=== PATIENT | female | born 1975 | race Caucasian/White ===

== ENCOUNTER 2019-02-08 16:41 | Inpatient (IN) | payer BC ==
[2019-02-08 18:12] LABS: BLOOD UREA NITROGEN,BUN 6 mg/dL (7.0-18.0); CHLORIDE,CL 105 mmol/L (98-107); GLUCOSE RANDOM 72 mg/dL (74-106); SODIUM,NA 140 mmol/L (136-145)
[2019-02-08] MEDS ORDERED: Sodium Chloride 0.9% 10 ML SDV IV PRN ×2 (18:41→18:56)
[2019-02-08] MEDS ORDERED: Sodium Chloride 0.9% 2.5 ML Syringe FLUSH PRN ×2 (18:41→18:56)
[2019-02-08] MEDS ORDERED: Sodium Chloride 0.9% 10 ML Syringe FLUSH PRN ×2 (18:41→18:56)
--- NOTE | 2019-02-08 18:43 | PCM.PREANE ---
Preanesthetic Assessment - Anesthesia/Transfusion/Family Hx Anesthesia History: Prior Anesthesia Without Reaction Family History of Anesthesia Reaction: No Transfusion History: No Prior Transfusion(s) - Review of Systems General: No Symptoms Pulmonary: No Symptoms Cardiovascular: No Symptoms Gastrointestinal: No Symptoms Neurological: No Symptoms Other: Reports: None - Physical Assessment NPO Status Date: 02/08/19 NPO Status Time: 17:00 Height: 5 ft 4 in Weight: 107.955 kg ASA Class: 2E Mental Status: Alert & Oriented x3 Airway Class: Mallampati = 2 Dentition: Reports: Normal Dentition Thyro-Mental Finger Breadths: 3 Mouth Opening Finger Breadths: 3 ROM/Head Extension: Full Lungs: Clear to Auscultation, Normal Respiratory Effort Cardiovascular: Regular Rate, Regular Rhythm - Lab Values: Laboratory Last Values WBC 5.24 K/uL (4.0-11.0) 02/08/19 17:36 RBC 3.97 M/uL (4.30-5.90) L 02/08/19 17:36 Hgb 12.1 g/dL (12.0-16.0) 02/08/19 17:36 Hct 35.1 % (36.0-46.0) L 02/08/19 17:36 MCV 88.4 fL (80.0-98.0) 02/08/19 17:36 MCH 30.5 pg (27.0-32.0) 02/08/19 17:36 MCHC 34.5 g/dL (31.0-37.0) 02/08/19 17:36 RDW Std Deviation 43.6 fl (28.0-62.0) 02/08/19 17:36 RDW Coeff of Gerg 14 % (11.0-15.0) 02/08/19 17:36 Plt Count 198 K/uL (150-400) 02/08/19 17:36 MPV 10.30 fL (7.40-12.00) 02/08/19 17:36 Nucleated RBC % 0.0 /100WBC 02/08/19 17:36 Nucleated RBCs # 0 K/uL 02/08/19 17:36 Sodium 140 mmol/L (136-145) 02/08/19 17:36 Potassium 4.0 mmol/L (3.5-5.1) 02/08/19 17:36 Chloride 105 mmol/L (98-107) 02/08/19 17:36 Carbon Dioxide 26.0 mmol/L (21.0-32.0) 02/08/19 17:36 BUN 6 mg/dL (7.0-18.0) L 02/08/19 17:36 Creatinine 0.6 mg/dL (0.6-1.0) 02/08/19 17:36 Est Cr Clr Drug Dosing 106.55 mL/min 02/08/19 17:36 Estimated GFR (MDRD) > 60.0 ml/min 02/08/19 17:36 Glucose 72 mg/dL (74-106) L 02/08/19 17:36 Uric Acid 3.9 mg/dL (2.6-7.2) 02/08/19 17:36 Calcium 8.1 mg/dL (8.5-10.1) L 02/08/19 17:36 Total Bilirubin 0.4 mg/dL (0.2-1.0) 02/08/19 17:36 AST 17 IU/L (15-37) 02/08/19 17:36 ALT 23 IU/L (14-63) 02/08/19 17:36 Alkaline Phosphatase 101 U/L (46-116) 02/08/19 17:36 Total Protein 5.9 g/dL (6.4-8.2) L 02/08/19 17:36 Albumin 2.7 g/dL (3.4-5.0) L 02/08/19 17:36 Globulin 3.2 g/dL (2.6-4.0) 02/08/19 17:36 Albumin/Globulin Ratio 0.8 (0.9-1.6) L 02/08/19 17:36 - Allergies Allergies/Adverse Reactions: Allergies Allergy/AdvReac Type Severity Reaction Status Date / Time No Known Allergies Allergy Verified 03/31/15 05:44 - Blood Blood Available: Yes - Acknowledgements Anesthesia Type Planned: General Anesthesia, Spinal Pt an Appropriate Candidate for the Planned Anesthesia: Yes Alternatives and Risks of Anesthesia Discussed w Pt/Guardian: Yes Pt/Guardian Understands and Agrees with Anesthesia Plan: Yes PreAnesthesia Questionnaire HEENT History: Reports: None Other HEENT History: Eustachian tube Right ear. Lasik Cardiovascular History: Reports: None Respiratory History: Reports: None Gastrointestinal History: Reports: GERD Genitourinary History: Reports: None ORTHO NURSE History: Reports: , Spontaneous : 5 Para: 1 LMP (Approximate): Musculoskeletal History: Reports: None Neurological History: Reports: None Psychiatric History: Reports: Anxiety, Panic Attack Endocrine/Metabolic History: Reports: Hypothyroidism, Obesity/BMI 30+ Hematologic History: Reports: None Immunologic History: Reports: None Oncologic (Cancer) History: Reports: None Dermatologic History: Reports: None - Infectious Disease History Infectious Disease History: Reports: Chicken Pox - Past Surgical History HEENT Surgical History: Reports: LASIK, Myringotomy w Tube(s), Other (See Below) Other HEENT Surgeries/Procedures: wisdom teeth extraction GI Surgical History: Reports: None Female Surgical History: Reports: Breast Implant, Section Musculoskeletal Surgical History: Reports: Other (See Below) Other Musculoskeletal Surgeries/Procedures:: pilonidal cyst removal X2 - SUBSTANCE USE Smoking Status *Q: Never Smoker Second Hand Smoke Exposure: No Recreational Drug Use History: No - HOME MEDS Home Medications: Home Meds Levothyroxine 1 tab PO DAILY 02/08/19 [History] Vit #76/Iron,Carb/Fa [Pnv 29-1 Tablet] 1 tab PO DAILY 02/08/19 [History ]
[2019-02-08] MEDS: Lactated Ringers 1,000 ML IV SCH ×2 (18:50→19:11)
[2019-02-08] MEDS ORDERED: Ondansetron 4 MG/2 ML SDV ONE (18:54)
[2019-02-08] MEDS ORDERED: ceFAZolin 1 GM Vial ONE (18:54)
[2019-02-08] MEDS ORDERED: ePHEDrine 50 MG/ML SDV ONE (18:54)
[2019-02-08] MEDS ORDERED: Sodium Chloride 0.9% 40 ML ONE (18:54)
[2019-02-08] MEDS ORDERED: Morphine PF 10 MG/10 ML SDV ONE (18:56)
[2019-02-08] MEDS ORDERED: Citric Acid/Sodium Citrate Solution 30 ML Cup PO ONE (18:56)
[2019-02-08] MEDS ORDERED: ceFAZolin 2 GM in Premix Bag 1 BAG IV ONE (18:56)
[2019-02-08] MEDS ORDERED: Midazolam 1 MG/ML 2 ML SDV ONE (18:58)
[2019-02-08] MEDS ORDERED: Oxytocin/0.9 % Sodium Chloride 30 UNIT/500 ML BAG IV SCH (19:00)
[2019-02-08] MEDS ORDERED: Glycopyrrolate 0.2 MG/ML SDV ONE ×2 (19:36→19:56)
[2019-02-08] MEDS ORDERED: diphenhydrAMINE 50 MG/ML SDV IVPUSH PRN ×2 (21:02→21:07)
[2019-02-08] MEDS ORDERED: Nalbuphine 10 MG/1 ML Vial IVPUSH PRN (21:02)
[2019-02-08] MEDS ORDERED: Naloxone 0.4 MG/ML Syringe IVPUSH PRN (21:02)
[2019-02-08] MEDS ORDERED: Bisacodyl 10 MG Supp RECTAL PRN (21:07)
[2019-02-08] MEDS ORDERED: Ondansetron 4 MG/2 ML SDV IVPUSH PRN (21:07)
[2019-02-08] MEDS ORDERED: Lanolin 100% Cream 7 GM Tube TOP PRN (21:07)
[2019-02-08] MEDS ORDERED: Acetaminophen/oxyCODONE 325-5 MG Tab PO PRN (21:07)
[2019-02-08] MEDS ORDERED: Aluminum Hydroxide/Magnesium Hydroxide/Simethicone Susp 30 ML Cup PO PRN (21:07)
[2019-02-08] MEDS ORDERED: Simethicone 80 MG Tab.Chew PO PRN (21:07)
--- NOTE | 2019-02-08 21:07 | PCM.OPNOTE ---
- General Post-Op/Procedure Note Date of Surgery/Procedure: 02/08/19 Operative Procedure(s): Repeat low-transverse section Findings: Live female infant in cephalic presentation, Apgars 8/9, weight pending, cord gases pending. Normal uterus, ovaries, and tubes. Adhesions of bladder to uterus. Pre Op Diagnosis: 43yo at 37w3d with elevated blood pressure in and history of x1 Post-Op Diagnosis: same Anesthesia Technique: Spinal Primary Surgeon: Irene Davis Sign Carpenter: Frank Anders Pathology: placenta, cord gases Fluid Replacement, Intraop: 1,100 Output, Urine Amount: 200 EBL in mLs: 1,000 Complications: none Condition: Stable Free Text/Narrative:: 1 g tranexamic acid and Monse intra-op due to serosal bleeding
[2019-02-08] MEDS ORDERED: Lactated Ringers 1,000 ML IV SCH (21:15)
--- NOTE | 2019-02-08 21:23 | PCM.POSTAN ---
POST ANESTHESIA ASSESSMENT - MENTAL STATUS Mental Status: Alert, Oriented - VITAL SIGNS Vital Signs: Last Vital Signs Temp 207.0 F H 02/08/19 20:56 Pulse 67 02/08/19 21:20 Resp 16 02/08/19 21:20 BP 125/70 02/08/19 21:20 Pulse Ox 99 02/08/19 21:20 - RESPIRATORY Respiratory Status: Respiratory Rate WNL, Airway Patent, O2 Saturation Stable - CARDIOVASCULAR CV Status: Pulse Rate WNL, Blood Pressure Stable - GASTROINTESTINAL GI Status: No Symptoms - PAIN Pain Score: 0 - POST OP HYDRATION Hydration Status: Adequate & Stable - OBSERVATIONS Free Text/Narrative:: Temp 97.1 Correction
[2019-02-08] MEDS: Ketorolac 30 MG/ML SDV IVPUSH SCH (21:37)
[2019-02-09] MEDS: Ketorolac 30 MG/ML SDV IVPUSH SCH ×4 (03:28→22:44)
--- NOTE | 2019-02-09 04:01 | OR ---
SURGEON: Irene Davis MD DATE OF PROCEDURE: 02/08/2019 PREOPERATIVE DIAGNOSIS: A 43-year-old at 37 weeks and 3 days gestation with elevated blood pressure and history of section. POSTOPERATIVE DIAGNOSIS: A 43-year-old at 37 weeks and 3 days gestation with elevated blood pressure and history of section. PROCEDURE: Repeat low transverse section. AUDIT MACHINE OPERATOR: Frank Anders, medical student. IV FLUIDS: 1100 mL. ESTIMATED BLOOD LOSS: 1000 mL. URINE OUTPUT: 200 mL. MEDICATIONS: The medications given during the surgery are 1 g tranexamic acid, Monse. PATHOLOGY: Placenta, cord gases and cord blood. FINDINGS: Live female infant in cephalic presentation, score 8 and 9 at 1 and 5 minutes respectively. Weight pending. Cord gases pending. DESCRIPTION OF PROCEDURE: The patient was taken to the operating room where spinal anesthesia was obtained. She was placed in dorsal supine position with leftward tilt. She was prepared and draped in normal sterile fashion. A Pfannenstiel skin incision was made using the previous incision and carried through to the underlying layer of fascia with the Bovie. The fascia was incised in the midline, and the incision was extended laterally with curved Rice scissors. Superior aspect of fascial incision was grasped with Kasie clamps, elevated, and underlying rectus muscles dissected off bluntly with curved Rice scissors. In a similar fashion, the inferior aspect of the fascial incision was grasped with Kasie clamps, elevated, and the underlying rectus muscles dissected off bluntly with curved Rice scissors. The peritoneum was grasped with 2 hemostats and entered sharply with Metzenbaum scissors. Peritoneal incision was extended superiorly and inferiorly using the Bovie ensuring that no bowel, omentum, or bladder were entrapped. The peritoneal incision was further extended using gentle traction. A bladder blade was inserted. Bladder flap was created in the routine fashion. A low transverse hysterotomy was created. Artificial rupture of membranes occurred with clear fluid noted. 's head was delivered atraumatically followed by the remainder of body. The nose and mouth were suctioned with bulb suction. The cord was clamped and cut. The was handed off to the awaiting nursery team. The cord gases were obtained. The placenta delivered spontaneously using manual traction and uterine massage intact with three vessel cord. The uterus was cleared of all clots. The hysterotomy was repaired with a running lock stitch of 0 Vicryl suture. A second stitch of the same suture was used to obtain hemostasis. A running locked stitch of 0 Vicryl suture was used to obtain hemostasis of bleeding uterine serosa where the bladder flap was created. The uterus was returned to the abdomen. All gutters were cleared of all clots. Monse was placed over the bladder flap incision and hysterotomy due to oozing. The Bovie was used to obtain hemostasis of these areas as well. The bladder blade was removed. The fascia was closed with a running stitch of 0 Vicryl suture. Subcutaneous tissue was closed with a running stitch of 3-0 Vicryl. The skin was closed with 4-0 Vicryl in a subcuticular manner. The patient tolerated the procedure well. All sponge, lap and needle counts were correct x2. 2 g of Ancef was given prior to incision. BRANDEN / MODL /[id number] FREDA
--- NOTE | 2019-02-09 05:03 | PCM.PNPP ---
- General Info Date of Service: 02/09/19 Subjective Update: Cordova catheter still in place. Has not yet ambulated. - Review of Systems General: Reports: No Symptoms HEENT: Denies: Headaches Pulmonary: Denies: Shortness of Breath Cardiovascular: Denies: Chest Pain Gastrointestinal: Reports: Vomiting. Denies: Abdominal Pain Genitourinary: Reports: No Symptoms Musculoskeletal: Reports: No Symptoms Skin: Reports: No Symptoms Neurological: Denies: Dizziness Psychiatric: Reports: No Symptoms - Patient Data Vital Signs - Most Recent: Last Vital Signs Temp 36.8 C 02/09/19 04:00 Pulse 63 02/09/19 04:00 Resp 17 02/09/19 04:00 BP 140/80 02/09/19 04:00 Pulse Ox 94 L 02/09/19 04:00 Weight - Most Recent: 107.955 kg I&O - Last 24 Hours: Intake & Output 02/08/19 02/08/19 02/09/19 14:59 22:59 06:59 Intake Total 3050 Output Total 600 Balance 2450 Lab Results - Last 24 Hours: Laboratory Results - last 24 hr 02/08/19 02/08/19 02/08/19 Range/Units 16:45 17:36 17:36 WBC 5.24 (4.0-11.0) K/uL RBC 3.97 L (4.30-5.90) M/uL Hgb 12.1 (12.0-16.0) g/dL Hct 35.1 L (36.0-46.0) % MCV 88.4 (80.0-98.0) fL MCH 30.5 (27.0-32.0) pg MCHC 34.5 (31.0-37.0) g/dL RDW Std Deviation 43.6 (28.0-62.0) fl RDW Coeff of Greg 14 (11.0-15.0) % Plt Count 198 (150-400) K/uL MPV 10.30 (7.40-12.00) fL Nucleated RBC % 0.0 /100WBC Nucleated RBCs # 0 K/uL Cord ABG pH (7.18-7.38) Cord ABG Base Excess (-10--2) Cord VBG pH (7.25-7.45) Cord VBG Base Excess (-10--2) Sodium 140 (136-145) mmol/L Potassium 4.0 (3.5-5.1) mmol/L Chloride 105 (98-107) mmol/L Carbon Dioxide 26.0 (21.0-32.0) mmol/L BUN 6 L (7.0-18.0) mg/dL Creatinine 0.6 (0.6-1.0) mg/dL Est Cr Clr Drug Dosing 106.55 mL/min Estimated GFR (MDRD) > 60.0 ml/min Glucose 72 L (74-106) mg/dL Uric Acid 3.9 (2.6-7.2) mg/dL Calcium 8.1 L (8.5-10.1) mg/dL Total Bilirubin 0.4 (0.2-1.0) mg/dL AST 17 (15-37) IU/L ALT 23 (14-63) IU/L Alkaline Phosphatase 101 (46-116) U/L Total Protein 5.9 L (6.4-8.2) g/dL Albumin 2.7 L (3.4-5.0) g/dL Globulin 3.2 (2.6-4.0) g/dL Albumin/Globulin Ratio 0.8 L (0.9-1.6) Ur Random Creatinine 16.0 mg/dL U Random Total Protein < 6.0 (<11.9) mg/dL Protein/Creatinin Ratio TNP Blood Type Antibody Screen 02/08/19 02/08/19 Range/Units 17:36 20:03 WBC (4.0-11.0) K/uL RBC (4.30-5.90) M/uL Hgb (12.0-16.0) g/dL Hct (36.0-46.0) % MCV (80.0-98.0) fL MCH (27.0-32.0) pg MCHC (31.0-37.0) g/dL RDW Std Deviation (28.0-62.0) fl RDW Coeff of Greg (11.0-15.0) % Plt Count (150-400) K/uL MPV (7.40-12.00) fL Nucleated RBC % /100WBC Nucleated RBCs # K/uL Cord ABG pH 7.336 (7.18-7.38) Cord ABG Base Excess -5 (-10--2) Cord VBG pH 7.40 (7.25-7.45) Cord VBG Base Excess -5 (-10--2) Sodium (136-145) mmol/L Potassium (3.5-5.1) mmol/L Chloride (98-107) mmol/L Carbon Dioxide (21.0-32.0) mmol/L BUN (7.0-18.0) mg/dL Creatinine (0.6-1.0) mg/dL Est Cr Clr Drug Dosing mL/min Estimated GFR (MDRD) ml/min Glucose (74-106) mg/dL Uric Acid (2.6-7.2) mg/dL Calcium (8.5-10.1) mg/dL Total Bilirubin (0.2-1.0) mg/dL AST (15-37) IU/L ALT (14-63) IU/L Alkaline Phosphatase (46-116) U/L Total Protein (6.4-8.2) g/dL Albumin (3.4-5.0) g/dL Globulin (2.6-4.0) g/dL Albumin/Globulin Ratio (0.9-1.6) Ur Random Creatinine mg/dL U Random Total Protein (<11.9) mg/dL Protein/Creatinin Ratio Blood Type A POSITIVE Antibody Screen NEGATIVE Med Orders - Current: Current Medications Al Hydroxide/Mg Hydroxide (Mag-Al Plus) 30 ml PO Q8H PRN PRN Reason: Heartburn Bisacodyl (Dulcolax) 10 mg RECTAL ONETIME PRN PRN Reason: Constipation Diphenhydramine HCl (Benadryl) 25 mg IVPUSH Q4H PRN PRN Reason: Itching Stop: 02/09/19 21:02 Diphenhydramine HCl (Benadryl) 25 mg IVPUSH Q6H PRN PRN Reason: Itching or Nausea Docusate Sodium (Colace) 100 mg PO BID VENESSA Emollient Ointment (Lansinoh Hpa) 0 gm TOP ASDIRECTED PRN PRN Reason: Sore Nipples Ferrous Sulfate (Ferrous Sulfate) 325 mg PO BRK VENESSA Oxytocin/Sodium Chloride (Oxytocin 30 Unit/500 Ml-Ns) 30 unit in 500 mls @ 250 mls/hr IV TITRATE [facility] Lactated Ringer's (Ringers, Lactated) 1,000 mls @ 999 mls/hr IV BOLUS [facility] Last Admin: 02/08/19 19:11 Dose: 999 mls/hr Lactated Ringer's (Ringers, Lactated) 1,000 mls @ 125 mls/hr IV ASDIRECTED [facility] Last Admin: 02/08/19 22:05 Dose: 125 mls/hr Ibuprofen (Motrin) 800 mg PO Q8H PRN PRN Reason: mild pain or fever Ketorolac Tromethamine (Toradol) 30 mg IVPUSH Q6H [facility] Stop: 02/09/19 21:16 Last Admin: 02/09/19 03:28 Dose: 30 mg Nalbuphine HCl (Nubain) 5 mg IVPUSH Q3H PRN PRN Reason: Pruritis Stop: 02/09/19 21:02 Naloxone HCl (Narcan) 0.1 mg IVPUSH ONETIME PRN PRN Reason: Respiratory Depression Stop: 02/09/19 21:02 Ondansetron HCl (Zofran) 4 mg IVPUSH Q4H PRN PRN Reason: Nausea/Vomiting Last Admin: 02/09/19 04:37 Dose: 4 mg Oxycodone/Acetaminophen (Percocet 325-5 Mg) 1 tab PO Q4H PRN PRN Reason: Pain (moderate 4-6) Oxycodone/Acetaminophen (Percocet 325-5 Mg) 2 tab PO Q4H PRN PRN Reason: Pain (moderate 4-6) Simethicone (Simethicone) 80 mg PO Q4H PRN PRN Reason: Gas Sodium Chloride (Saline Flush) 10 ml FLUSH ASDIRECTED PRN PRN Reason: Keep Vein Open Sodium Chloride (Saline Flush) 2.5 ml FLUSH ASDIRECTED PRN PRN Reason: Keep Vein Open Sodium Chloride (Normal Saline) 10 ml IV ASDIRECTED PRN PRN Reason: IV Use Sodium Chloride (Saline Flush) 10 ml FLUSH ASDIRECTED PRN PRN Reason: Keep Vein Open Sodium Chloride (Saline Flush) 2.5 ml FLUSH ASDIRECTED PRN PRN Reason: Keep Vein Open Sodium Chloride (Normal Saline) 10 ml IV ASDIRECTED PRN PRN Reason: IV Use Discontinued Medications Cefazolin Sodium (Ancef) Confirm Administered Dose 2 gm .ROUTE .STK-MED ONE Stop: 02/08/19 18:55 Citric Acid/Sodium Citrate (Bicitra Solution) 30 ml PO ONETIME ONE Stop: 02/08/19 18:57 Ephedrine Sulfate (Ephedrine Sulfate) Confirm Administered Dose 50 mg .ROUTE .STK-MED ONE Stop: 02/08/19 18:55 Glycopyrrolate (Robinul) Confirm Administered Dose 0.2 mg .ROUTE .STK-MED ONE Stop: 02/08/19 19:37 Glycopyrrolate (Robinul) Confirm Administered Dose 0.2 mg .ROUTE .STK-MED ONE Stop: 02/08/19 19:57 Sodium Chloride (Normal Saline) Confirm Administered Dose 40 mls @ as directed .ROUTE .STK-MED ONE Stop: 02/08/19 18:55 Cefazolin Sodium/Dextrose 2 gm (/ Premix) 50 mls @ 100 mls/hr IV ONETIME ONE Stop: 02/08/19 19:25 Midazolam HCl (Versed 1 Mg/Ml) Confirm Administered Dose 2 mg .ROUTE .STK-MED ONE Stop: 02/08/19 18:59 Morphine Sulfate (Duramorph Pf) Confirm Administered Dose 10 mg .ROUTE .STK-MED ONE Stop: 02/08/19 18:57 Ondansetron HCl (Zofran) Confirm Administered Dose 4 mg .ROUTE .STK-MED ONE Stop: 02/08/19 18:55 - Interaction Infant Disposition, : Jeffrey at Bedside Infant Interaction: Holding Infant Feeding: Breastfed ; Nursed Well Support Person: - Recovery Exam Fundal Tone: Firm Fundal Level: 1 Fingerbreadths Below Umbilicus Fundal Placement: Midline Lochia Amount: Small Lochia Color: Rubra/Red Episiotomy/Laceration: None Bladder Status: Indwelling Catheter in Place Urinary Elimination: Indwelling Catheter - Exam General: Alert, Oriented, Cooperative, No Acute Distress Neck: Supple Lungs: Clear to Auscultation, Normal Respiratory Effort Cardiovascular: Regular Rate, Regular Rhythm GI/Abdominal Exam: Soft, No Distention, Tender (appropriate tenderness to palpation) Extremities: Non-Tender, Pedal Edema (2+) Skin: Warm, Dry Wound/Incisions: Dressing Dry and Intact Neurological: No New Focal Deficit Psy/Mental Status: Alert, Normal Affect, Normal Mood - Problem List & Annotations (1) delivery delivered SNOMED Code(s): 106182193 Code(s): O82 - ENCOUNTER FOR DELIVERY WITHOUT INDICATION Status: Acute Current Visit: No - Problem List Review Problem List Initiated/Reviewed/Updated: Yes - My Orders Last 24 Hours: My Active Orders 02/08/19 18:56 Patient Status [ADT] Routine Notify Provider Vital Signs [RC] PRN Up ad Aishwarya [RC] ASDIRECTED Vital Signs [RC] PER UNIT ROUTINE Sodium Chloride 0.9% [Normal Saline] 10 ml IV ASDIRECTED PRN Sodium Chloride 0.9% [Saline Flush] 10 ml FLUSH ASDIRECTED PRN Sodium Chloride 0.9% [Saline Flush] 2.5 ml FLUSH ASDIRECTED PRN Peripheral IV Insertion Adult [OM.PC] Routine Schedule Procedure [COMM] Per Unit Routine 02/08/19 19:00 Lactated Ringers [Ringers, Lactated] 1,000 ml IV BOLUS Oxytocin/0.9 % Sodium Chloride [Oxytocin 30 Unit/500 ML-NS] 30 unit in 500 ml IV TITRATE 02/08/19 21:07 Patient Status [ADT] Routine Ambulate [RC] PER UNIT ROUTINE Communication Order [RC] PER UNIT ROUTINE Communication Order [RC] Per Unit Routine Intake and Output [RC] Q8H May Shower [RC] ASDIRECTED Notify Provider Intake and Out [RC] ASDIRECTED Notify Provider Vital Signs [RC] ASDIRECTED RT Incentive Spirometry [RC] Q2HWA Urinary Catheter Removal [RC] Per Unit Routine Vital Signs [RC] PER UNIT ROUTINE Acetaminophen/oxyCODONE [Percocet 325-5 MG] 1 tab PO Q4H PRN Acetaminophen/oxyCODONE [Percocet 325-5 MG] 2 tab PO Q4H PRN Alum Hydrox/Mag Hydrox/Simeth [Mag-Al Plus] 30 ml PO Q8H PRN Bisacodyl [Dulcolax] 10 mg RECTAL ONETIME PRN Lanolin [Lansinoh HPA] See Dose Instructions TOP ASDIRECTED PRN Ondansetron [Zofran] 4 mg IVPUSH Q4H PRN Simethicone 80 mg PO Q4H PRN diphenhydrAMINE [Benadryl] 25 mg IVPUSH Q6H PRN Assess Lochia [WOMSER] Per Unit Routine Assess Uterine Involution [WOMSER] Per Unit Routine Breast Pump [WOMSER] Per Unit Routine DVT/VTE Prophylaxis Reflex [OM.PC] Routine Peripheral IV Discontinue [OM.PC] Routine Sequential Compression Device [OM.PC] Per Unit Routine 02/08/19 21:08 Antiembolic Devices [RC] PER UNIT ROUTINE Abdominal Binder [OM.PC] Per Unit Routine Heat Therapy [OM.PC] Per Unit Routine Ice Therapy [OM.PC] Per Unit Routine 02/08/19 21:09 Antiembolic Devices [RC] .Routine VTE/DVT Education [RC] PER UNIT ROUTINE 02/08/19 21:15 Ketorolac [Toradol] 30 mg IVPUSH Q6H Lactated Ringers [Ringers, Lactated] 1,000 ml IV ASDIRECTED 02/09/19 05:11 CBC WITH AUTO DIFF [HEME] AM COMPREHENSIVE METABOLIC PN,CMP [CHEM] AM 02/09/19 08:00 Ferrous Sulfate 325 mg PO BRK 02/09/19 09:00 Docusate Sodium [Colace] 100 mg PO BID 02/09/19 Breakfast Regular Diet [DIET] 02/10/19 03:00 Ibuprofen [Motrin] 800 mg PO Q8H PRN 02/10/19 21:19 Ready for Discharge [RC] PER UNIT ROUTINE - Assessment Assessment:: 43yo s/p repeat delivery at 37w3d - Plan Plan:: 1. Postoperative care -D/C cordova today -Encourage ambulation 2. Gestational hypertension -No symptoms of preeclampsia -Continue to monitor blood pressure 3. Dispo -Anticipate discharge home on POD#2
[2019-02-09 05:44] LABS: BLOOD UREA NITROGEN,BUN 6 mg/dL (7.0-18.0); CARBON DIOXIDE,CO2 23.9 mmol/L (21.0-32.0); CHLORIDE,CL 105 mmol/L (98-107); GLUCOSE RANDOM 82 mg/dL (74-106); POTASSIUM,K 3.4 mmol/L (3.5-5.1); SODIUM,NA 138 mmol/L (136-145)
--- NOTE | 2019-02-09 07:01 | PCM48HPAN ---
Post Anesthesia Note - EVALUATION WITHIN 48HRS OF ANESTHETIC Vital Signs in Normal Range: Yes Patient Participated in Evaluation: Yes Respiratory Function Stable: Yes Airway Patent: Yes Cardiovascular Function Stable: Yes Hydration Status Stable: Yes Pain Control Satisfactory: Yes Nausea and Vomiting Control Satisfactory: Yes Mental Status Recovered: Yes Vital Signs: Last Vital Signs Temp 98.3 F 02/09/19 04:00 Pulse 68 02/09/19 06:00 Resp 15 02/09/19 06:00 BP 133/75 02/09/19 05:00 Pulse Ox 94 L 02/09/19 06:00
[2019-02-09] MEDS: Ferrous Sulfate 325 MG Tab PO SCH (08:29)
[2019-02-09] MEDS: Docusate Sodium 100 MG Cap PO SCH ×2 (08:29→20:54)
[2019-02-09] MEDS: Levothyroxine 75 MCG Tab PO SCH (10:36)
[2019-02-10] MEDS ORDERED: Ibuprofen 800 MG Tab PO PRN (03:00)
[2019-02-10] MEDS: Acetaminophen/oxyCODONE 325-5 MG Tab PO PRN ×2 (05:46→11:36)
[2019-02-10] MEDS: Levothyroxine 75 MCG Tab PO SCH (07:20)
--- NOTE | 2019-02-10 08:24 | PCM.PNPP ---
- General Info Date of Service: 02/10/19 Subjective Update: Feeling well. Passing flatus, no BMs yet. Functional Status: Reports: Pain Controlled, Tolerating Diet, Ambulating, Urinating - Review of Systems General: Reports: No Symptoms HEENT: Reports: No Symptoms Pulmonary: Reports: No Symptoms Cardiovascular: Reports: No Symptoms Gastrointestinal: Reports: No Symptoms Genitourinary: Reports: No Symptoms Musculoskeletal: Reports: No Symptoms Skin: Reports: No Symptoms Neurological: Reports: No Symptoms Psychiatric: Reports: No Symptoms - Patient Data Vital Signs - Most Recent: Last Vital Signs Temp 36.5 C 02/10/19 05:00 Pulse 69 02/10/19 05:00 Resp 16 02/10/19 05:00 BP 132/78 02/10/19 06:45 Pulse Ox 98 02/10/19 05:00 Weight - Most Recent: 238 lb I&O - Last 24 Hours: Intake & Output 02/09/19 02/10/19 02/10/19 22:59 06:59 14:59 Output Total 3100 Balance -3100 Med Orders - Current: Current Medications Al Hydroxide/Mg Hydroxide (Mag-Al Plus) 30 ml PO Q8H PRN PRN Reason: Heartburn Bisacodyl (Dulcolax) 10 mg RECTAL ONETIME PRN PRN Reason: Constipation Diphenhydramine HCl (Benadryl) 25 mg IVPUSH Q6H PRN PRN Reason: Itching or Nausea Docusate Sodium (Colace) 100 mg PO BID [facility] Last Admin: 02/09/19 20:54 Dose: 100 mg Emollient Ointment (Lansinoh Hpa) 0 gm TOP ASDIRECTED PRN PRN Reason: Sore Nipples Last Admin: 02/09/19 22:57 Dose: 7 gm Ferrous Sulfate (Ferrous Sulfate) 325 mg PO BRK [facility] Last Admin: 02/09/19 08:29 Dose: 325 mg Oxytocin/Sodium Chloride (Oxytocin 30 Unit/500 Ml-Ns) 30 unit in 500 mls @ 250 mls/hr IV TITRATE [facility] Lactated Ringer's (Ringers, Lactated) 1,000 mls @ 999 mls/hr IV BOLUS [facility] Last Admin: 02/08/19 19:11 Dose: 999 mls/hr Lactated Ringer's (Ringers, Lactated) 1,000 mls @ 125 mls/hr IV ASDIRECTED [facility] Last Admin: 02/08/19 22:05 Dose: 125 mls/hr Ibuprofen (Motrin) 800 mg PO Q8H PRN PRN Reason: mild pain or fever Levothyroxine Sodium (Levothyroxine) 75 mcg PO ACBREAKFAST [facility] Last Admin: 02/10/19 07:20 Dose: 75 mcg Ondansetron HCl (Zofran) 4 mg IVPUSH Q4H PRN PRN Reason: Nausea/Vomiting Last Admin: 02/09/19 04:37 Dose: 4 mg Oxycodone/Acetaminophen (Percocet 325-5 Mg) 1 tab PO Q4H PRN PRN Reason: Pain (moderate 4-6) Oxycodone/Acetaminophen (Percocet 325-5 Mg) 2 tab PO Q4H PRN PRN Reason: Pain (moderate 4-6) Last Admin: 02/10/19 05:46 Dose: 2 tab Simethicone (Simethicone) 80 mg PO Q4H PRN PRN Reason: Gas Sodium Chloride (Saline Flush) 10 ml FLUSH ASDIRECTED PRN PRN Reason: Keep Vein Open Sodium Chloride (Saline Flush) 2.5 ml FLUSH ASDIRECTED PRN PRN Reason: Keep Vein Open Sodium Chloride (Normal Saline) 10 ml IV ASDIRECTED PRN PRN Reason: IV Use Sodium Chloride (Saline Flush) 10 ml FLUSH ASDIRECTED PRN PRN Reason: Keep Vein Open Sodium Chloride (Saline Flush) 2.5 ml FLUSH ASDIRECTED PRN PRN Reason: Keep Vein Open Sodium Chloride (Normal Saline) 10 ml IV ASDIRECTED PRN PRN Reason: IV Use Discontinued Medications Cefazolin Sodium (Ancef) Confirm Administered Dose 2 gm .ROUTE .STK-MED ONE Stop: 02/08/19 18:55 Citric Acid/Sodium Citrate (Bicitra Solution) 30 ml PO ONETIME ONE Stop: 02/08/19 18:57 Diphenhydramine HCl (Benadryl) 25 mg IVPUSH Q4H PRN PRN Reason: Itching Stop: 02/09/19 21:02 Ephedrine Sulfate (Ephedrine Sulfate) Confirm Administered Dose 50 mg .ROUTE .STK-MED ONE Stop: 02/08/19 18:55 Glycopyrrolate (Robinul) Confirm Administered Dose 0.2 mg .ROUTE .STK-MED ONE Stop: 02/08/19 19:37 Glycopyrrolate (Robinul) Confirm Administered Dose 0.2 mg .ROUTE .STK-MED ONE Stop: 02/08/19 19:57 Sodium Chloride (Normal Saline) Confirm Administered Dose 40 mls @ as directed .ROUTE .STK-MED ONE Stop: 02/08/19 18:55 Cefazolin Sodium/Dextrose 2 gm (/ Premix) 50 mls @ 100 mls/hr IV ONETIME ONE Stop: 02/08/19 19:25 Ketorolac Tromethamine (Toradol) 30 mg IVPUSH Q6H VENESSA Stop: 02/09/19 21:16 Last Admin: 02/09/19 22:44 Dose: 30 mg Midazolam HCl (Versed 1 Mg/Ml) Confirm Administered Dose 2 mg .ROUTE .STK-MED ONE Stop: 02/08/19 18:59 Morphine Sulfate (Duramorph Pf) Confirm Administered Dose 10 mg .ROUTE .STK-MED ONE Stop: 02/08/19 18:57 Nalbuphine HCl (Nubain) 5 mg IVPUSH Q3H PRN PRN Reason: Pruritis Stop: 02/09/19 21:02 Naloxone HCl (Narcan) 0.1 mg IVPUSH ONETIME PRN PRN Reason: Respiratory Depression Stop: 02/09/19 21:02 Ondansetron HCl (Zofran) Confirm Administered Dose 4 mg .ROUTE .STK-MED ONE Stop: 02/08/19 18:55 - Infant Interaction Infant Disposition, : [place] at Bedside Infant Interaction: Holding Infant Feeding: Breastfed Infant; Nursed Well Support Person: - Recovery Exam Fundal Tone: Firm Fundal Level: At Umbilicus Fundal Placement: Midline Lochia Amount: Scant Lochia Color: Rubra/Red Bladder Status: Voiding - Exam General: Alert, Oriented, No Acute Distress Lungs: Normal Respiratory Effort GI/Abdominal Exam: Soft, Non-Tender, No Distention, Other (Incision c/d/i. ) Extremities: Normal Inspection, Non-Tender, No Pedal Edema Wound/Incisions: Healing Well, No Drainage Psy/Mental Status: Alert, Normal Affect, Normal Mood - Problem List Review Problem List Initiated/Reviewed/Updated: Yes - My Orders Last 24 Hours: My Active Orders 02/09/19 07:30 Levothyroxine 75 mcg PO ACBREAKFAST - Assessment Assessment:: 43yo s/p repeat delivery at 37w3d. POD2, stable and doing well. - Plan Plan:: 1. Postoperative care -Encourage ambulation - Passing flatus - meeting all milestones 2. Gestational hypertension -No symptoms of preeclampsia, labs stable -BP mostly normotensive, few mild ranges 3. Dispo -Anticipate discharge home today
[2019-02-10] MEDS: Ferrous Sulfate 325 MG Tab PO SCH (08:44)
[2019-02-10] MEDS: Docusate Sodium 100 MG Cap PO SCH (08:44)
[2019-02-10 09:30] VITALS: BP 139/72; PULSE 65
--- NOTE | 2019-02-13 04:32 | PCM.HP.2 ---
H&P History of Present Illness - General Date of Service: 02/08/19 Admit Problem/Dx: Admission Diagnosis/Problem Admission Diagnosis/Problem high blood pressure in Source of Information: Patient History Limitations: Reports: No Limitations - History of Present Illness Initial Comments - Free Text/Narative: Patient seen in clinic today for routine OB visit. At visit, was noted to have elevated blood pressure. Denies preeclampsia symptoms. + movement. Denies leakage of fluid, contractions, vaginal bleeding. - Related Data Allergies/Adverse Reactions: Allergies Allergy/AdvReac Type Severity Reaction Status Date / Time No Known Allergies Allergy Verified 02/11/19 18:31 Home Medications: Home Meds Levothyroxine 75 mcg PO DAILY 02/08/19 [History] Vit #76/Iron,Carb/Fa [Pnv 29-1 Tablet] 1 tab PO DAILY 02/08/19 [History ] Acetaminophen/oxyCODONE [Percocet 325-5 MG] 1 tab PO Q4H PRN #12 tablet [Rx] Bisacodyl [Dulcolax] 10 mg RECTAL ONETIME PRN supp 02/10/19 [Rx] Docusate Sodium [Colace] 100 mg PO BID cap 02/10/19 [Rx] Ferrous Sulfate 325 mg PO BIDMEALS #60 tablet 02/10/19 [Rx] Past Medical History HEENT History: Reports: None Other HEENT History: Eustachian tube Right ear. Lasik Cardiovascular History: Reports: None Respiratory History: Reports: None Gastrointestinal History: Reports: GERD Genitourinary History: Reports: None [employer] History: Reports: , Spontaneous Musculoskeletal History: Reports: None Neurological History: Reports: None Psychiatric History: Reports: Anxiety, Panic Attack Endocrine/Metabolic History: Reports: Hypothyroidism, Obesity/BMI 30+ Hematologic History: Reports: None Immunologic History: Reports: None Oncologic (Cancer) History: Reports: None Dermatologic History: Reports: None - Infectious Disease History Infectious Disease History: Reports: Chicken Pox - Past Surgical History HEENT Surgical History: Reports: LASIK, Myringotomy w Tube(s), Other (See Below) Other HEENT Surgeries/Procedures: wisdom teeth extraction GI Surgical History: Reports: None Female Surgical History: Reports: Breast Implant, Section Musculoskeletal Surgical History: Reports: Other (See Below) Other Musculoskeletal Surgeries/Procedures:: pilonidal cyst removal X2 Social & Family History - Family History HEENT: Reports: None Cardiac: Reports: Angina, CAD, CO GI: Reports: None : Reports: Renal Calculus OBGYN: Reports: Musculoskeletal: Reports: None Neurological: Reports: CVA Psychiatric: Reports: Depression Endocrine/Metabolic: Reports: Diabetes, type II, Hypothyroidism Hematologic: Reports: None Immunologic: Reports: None Dermatologic: Reports: None Oncologic: Reports: Colon, Lung, Skin - Tobacco Use Smoking Status *Q: Never Smoker Second Hand Smoke Exposure: No - Caffeine Use Caffeine Use: Reports: Coffee, Soda - Recreational Drug Use Recreational Drug Use: No H&P Review of Systems - Review of Systems: Review Of Systems: ROS reveals no pertinent complaints other than HPI. Exam - Exam Exam: See Below - Vital Signs Vital Signs: Last Vital Signs Temp 36.2 C 02/10/19 07:45 Pulse 65 02/10/19 09:30 Resp 16 02/10/19 09:30 BP 139/72 02/10/19 09:30 Pulse Ox 97 02/10/19 09:30 Weight: 107.955 kg - Exam General: Alert, Oriented, Cooperative Lungs: Clear to Auscultation, Normal Respiratory Effort Cardiovascular: Regular Rate, Regular Rhythm GI/Abdominal Exam: Normal Bowel Sounds, Soft, Non-Tender Extremities: Pedal Edema (2+) Skin: Warm, Dry, Intact Neurological: Hyperreflexia (2+) Neuro Extensive - Mental Status: Alert, Oriented x3, Normal Mood/Affect Psychiatric: Alert, Normal Affect, Normal Mood - Patient Data Result Diagrams: 02/09/19 05:08 02/09/19 05:08 *Q Meaningful Use (ADM) - VTE *Q VTE Criteria *Q: 0 VTE Mechanical Contraindications *Q: At Risk for Falls VTE Pharmacological Contraindications *Q: Patient Scheduled Surgery - VTE Risk Assess *Q Each Risk Factor Represents 1 Point: Age 41 - 59 years, Minor Surgery Planned, or , Less than 1 Month Total Score 1 Point Risk Factors: 3 Each Risk Factor Represents 2 Points: None Total Score 2 Point Risk Factors: 0 Each Risk Factor Represents 3 Points: None Total Score 3 Point Risk Factors: 0 Each Risk Factor Represents 5 Points: None Total Score 5 Point Risk Factors: 0 Venous Thromboembolism Risk Factor Score *Q: 3 - Stroke *Q Stroke Criteria *Q: 0 Aspirin Contraindications Stroke *Q: Other (Use Special Inst) (none) Anticoagulation Contraindications Stroke *Q: Med/TX Not Indicated/Need Antithrombotic Contraindications Stroke *Q: Med/TX Not Indicated/Need Thrombolytic/Fibrinolytic Contraindications Stroke *Q: Med/TX Not Indicated/Need Statin Contraindications Stroke *Q: Med/TX Not Indicated/Need Rehabilitation Assessment Contraindication *Q: Med/tx not indicated/need - AMI *Q AMI Criteria *Q: 0 Aspirin Contraindications AMI *Q: Med/TX Not Indicated/Need Thrombolytic/Fibrinolytic Contraindications IV (AMI) *Q: Med/tx not indicated/ need Statin Contraindications AMI *Q: Med/TX Not Indicated/Need - Problem List (1) delivery delivered SNOMED Code(s): 643281508 ICD Code: O82 - ENCOUNTER FOR DELIVERY WITHOUT INDICATION Status: Acute Problem List Initiated/Reviewed/Updated: Yes Assessment/Plan Comment:: 1. Elevated blood pressure in -Preeclampsia labs -Monitor blood pressure -Unable to calculate protein:Cr ratio due to low protein -Delivery indicated as >37 weeks 2. History of -Desires repeat -Reviewed risks of , including but not limited to, infection, bleeding with possible need for transfusion/additional surgery/hysterectomy, injury to surrounding organs/vessels/nerves, injury to baby, and of patient or baby. Patient voiced understanding and agreed to proceed.
== END 2019-02-10 12:14 | disposition home or self-care (01) | DRG 540 ==
LOC: MW.OBCHECK 16:41 → MW.OB 18:26 → MW.OBCHECK 18:56 → MW.OB 02-09 01:08
PROVIDERS: ADMIT Obstetrics & Gynecology; ATTEND Obstetrics & Gynecology
PROC: 10D00Z1 Extraction of Products of Conception, Low, Open Approach (ICD-10-PCS; principal; 2019-02-08)
DX: O13.4 Gestational [pregnancy-induced] hypertension without significant proteinuria, complicating childbirth (principal); Z37.0 Single live birth; O99.283 Endocrine, nutritional and metabolic diseases complicating pregnancy, third trimester; E03.9 Hypothyroidism, unspecified; O99.214 Obesity complicating childbirth; E66.9 Obesity, unspecified; O34.211 Maternal care for low transverse scar from previous cesarean delivery; Z3A.37 37 weeks gestation of pregnancy; Z79.899 Other long term (current) drug therapy
CPT/HCPCS: 36415; 59025; 80053; 82570; 82803; 84156; 84550; 85025; 85027; 86850; 86900; 86901; A9270-GY; J0690; J1885; J2250; J2270; J2405; J3490; J7120

== ENCOUNTER 2019-02-11 18:20 | Emergency (ER) | payer BC ==
[2019-02-11] MEDS ORDERED: Furosemide 40 MG/4 ML VIAL IVPUSH ONE (18:53)
[2019-02-11] MEDS ORDERED: Sodium Chloride 0.9% 2.5 ML Syringe FLUSH PRN (18:54)
[2019-02-11] MEDS ORDERED: Sodium Chloride 0.9% 10 ML Syringe FLUSH PRN (18:54)
--- NOTE | 2019-02-11 19:20 | EDM.PDOC ---
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 Patient is post op repeat day 3. Patient states she had to have her delivery at 37 weeks because her blood pressure was slightly elevated. Patient states she was discharged yesterday after a normal hospital stay. Patient states that in the hospital her blood pressure was normal. Patient states starting today, any time she tries to sleep, just that she is about to fall asleep she wakes up feeling short of breath. Patient states she feels more "swollen" so decided to check her blood pressure. Patient states her blood pressure was 170 systolic at home and she is not sure what the bottom number was. Patient denies fever, chills, chest pain, or cough. Denies headache, neck stiff ness, change in vision, syncope, or near syncope. Denies nausea, vomiting, abdominal pain, diarrhea, constipation, or dysuria. Has not noted any blood in urine or stool. Patient has been eating and drinking appropriately. Review of systems: As per history of present illness and below otherwise all systems reviewed and negative. Past medical history: As per history of present illness and as reviewed below otherwise noncontributory. Surgical history: As per history of present illness and as reviewed below otherwise noncontributory. Social history: See social history for further information Family history: As per history of present illness and as reviewed below otherwise noncontributory. Physical exam: General: Patient is alert, oriented, and in no acute distress. Patient sitting comfortably on exam table. Patient does have a generalized edematous appearance. HEENT: Atraumatic, normocephalic, pupils equal and reactive bilaterally, negative for conjunctival pallor or scleral icterus, mucous membranes moist, TMs normal bilaterally, throat clear, neck supple, nontender, trachea midline. No drooling or trismus noted. No meningeal signs. No hot potato voice noted. Patient's eyelids are slightly edematous as well as face. Lungs: Clear to auscultation, breath sounds equal bilaterally, chest nontender. Heart: S1S2, regular rate and rhythm without overt murmur Abdomen: Obese, soft, nondistended, nontender. Incision consistent with surgical history. Negative for masses or hepatosplenomegaly. Negative for costovertebral tenderness. Pelvis: Stable nontender. Genitourinary: Deferred. Rectal: Deferred. Skin: Intact, warm, dry. No lesions or rashes noted. Extremities: Atraumatic, negative for cords or calf pain. Neurovascular unremarkable. 1+ pitting edema to bilateral lower extremities. Patient's upper and lower extremities appear edematous. Neuro: Awake, alert, oriented. Cranial nerves II through XII unremarkable. Cerebellum unremarkable. Motor and sensory unremarkable throughout. Exam nonfocal. Notes: Dr. Casillas verbally involved in patient care. Did call and speak to Dr. Gold [facility] OBGYN manager concrete, consulted on patient and thoroughly discussed patient's case. She doesn't see any need to aggressively lower blood pressure at this time and to give nifedipine 30 mg by mouth and to send her home with a prescription for this with close follow up. She is not concerned about the elevated BNP at this time and to send her home with close follow up. Discussed this with patient and put her on the expedited follow-up to be seen tomorrow at [facility]. Voices understanding and is agreeable to plan of care. Denies any further questions or concerns at this time. Diagnostics: CBC, CMP, UA, BMP, chest x-ray, troponin, CTA Therapeutics: Lasix, nifedipine Prescription: Nifedipine Impression: Hypertension Elevated BNP Plan: 1. Take medication as prescribed. You can use Tylenol as directed for pain and discomfort. 2. Follow-up with [facility] tomorrow. Call in the morning to verify appointment time with them 3. Return to the ED as needed and as discussed. Definitive disposition and diagnosis as appropriate pending reevaluation and review of above. post operative site Pain Score (Numeric/FACES): 4 - Related Data Allergies Allergy/AdvReac Type Severity Reaction Status Date / Time No Known Allergies Allergy Verified 02/11/19 18:31 Home Meds: Home Meds Levothyroxine 75 mcg PO DAILY 02/08/19 [History] Vit #76/Iron,Carb/Fa [Pnv 29-1 Tablet] 1 tab PO DAILY 02/08/19 [History ] Acetaminophen/oxyCODONE [Percocet 325-5 MG] 1 tab PO Q4H PRN #12 tablet [Rx] Bisacodyl [Dulcolax] 10 mg RECTAL ONETIME PRN supp 02/10/19 [Rx] Docusate Sodium [Colace] 100 mg PO BID cap 02/10/19 [Rx] Ferrous Sulfate 325 mg PO BIDMEALS #60 tablet 02/10/19 [Rx] Past Medical History HEENT History: Reports: None Other HEENT History: Eustachian tube Right ear. 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 Musculoskeletal History: Reports: None Neurological History: Reports: None Psychiatric History: Reports: Anxiety, Panic Attack Endocrine/Metabolic History: Reports: Hypothyroidism, Obesity/BMI 30+ Hematologic History: Reports: None Immunologic History: Reports: None Oncologic (Cancer) History: Reports: None Dermatologic History: Reports: None - Infectious Disease History Infectious Disease History: Reports: Chicken Pox - Past Surgical History HEENT Surgical History: Reports: LASIK, Myringotomy w Tube(s), Other (See Below) Other HEENT Surgeries/Procedures: wisdom teeth extraction Cardiovascular Surgical History: Reports: None GI Surgical History: Reports: None Female Surgical History: Reports: Breast Implant, Section Musculoskeletal Surgical History: Reports: Other (See Below) Other Musculoskeletal Surgeries/Procedures:: pilonidal cyst removal X2 Social & Family History - Family History Family Medical History: Noncontributory HEENT: Reports: None Cardiac: Reports: Angina, CAD, DE GI: Reports: None : Reports: Renal Calculus OBGYN: Reports: Musculoskeletal: Reports: None Neurological: Reports: CVA Psychiatric: Reports: Depression Endocrine/Metabolic: Reports: Diabetes, type II, Hypothyroidism Hematologic: Reports: None Immunologic: Reports: None Dermatologic: Reports: None Oncologic: Reports: Colon, Lung, Skin - Tobacco Use Smoking Status *Q: Never Smoker Second Hand Smoke Exposure: No - Caffeine Use Caffeine Use: Reports: Soda - Recreational Drug Use Recreational Drug Use: No ED ROS GENERAL - Review of Systems Review Of Systems: ROS reveals no pertinent complaints other than HPI. ED EXAM, GENERAL - Physical Exam Exam: See Below (See dictation) Course - Vital Signs Last Recorded V/S: Last Vital Signs Temp 97.1 F 02/11/19 18:26 Pulse 63 02/11/19 20:36 Resp 18 02/11/19 20:36 BP 159/83 H 02/11/19 21:55 Pulse Ox 98 02/11/19 20:36 - Orders/Labs/Meds Orders: Active Orders 24 hr Category Date Time Status EKG Documentation Completion [RC] STAT Care 02/11/19 18:39 Active CULTURE URINE [RM] Stat Lab 02/11/19 18:34 Received Sodium Chloride 0.9% [Saline Flush] Med 02/11/19 18:54 Active 10 ml FLUSH ASDIRECTED PRN Sodium Chloride 0.9% [Saline Flush] Med 02/11/19 18:54 Active 2.5 ml FLUSH ASDIRECTED PRN Saline Lock Insert [OM.PC] Stat Oth 02/11/19 18:54 Ordered Medication Orders Sodium Chloride (Saline Flush) 10 ml FLUSH ASDIRECTED PRN PRN Reason: Keep Vein Open Sodium Chloride (Saline Flush) 2.5 ml FLUSH ASDIRECTED PRN PRN Reason: Keep Vein Open Labs: Laboratory Tests 02/11/19 02/11/19 02/11/19 Range/Units 18:34 19:00 19:00 WBC 5.60 (4.0-11.0) K/uL RBC 3.22 L (4.30-5.90) M/uL Hgb 9.8 L (12.0-16.0) g/dL Hct 29.2 L (36.0-46.0) % MCV 90.7 (80.0-98.0) fL MCH 30.4 (27.0-32.0) pg MCHC 33.6 (31.0-37.0) g/dL RDW Std Deviation 44.5 (28.0-62.0) fl RDW Coeff of Greg 14 (11.0-15.0) % Plt Count 218 (150-400) K/uL MPV 9.90 (7.40-12.00) fL Neut % (Auto) 65.6 (48.0-80.0) % Lymph % (Auto) 25.9 (16.0-40.0) % [place] % (Auto) 5.4 (0.0-15.0) % Eos % (Auto) 2.9 (0.0-7.0) % Baso % (Auto) 0.2 (0.0-1.5) % Neut # (Auto) 3.7 (1.4-5.7) K/uL Lymph # (Auto) 1.5 (0.6-2.4) K/uL [place] # (Auto) 0.3 (0.0-0.8) K/uL Eos # (Auto) 0.2 (0.0-0.7) K/uL Baso # (Auto) 0.0 (0.0-0.1) K/uL Nucleated RBC % 0.0 /100WBC Nucleated RBCs # 0 K/uL INR Sodium 140 (136-145) mmol/L Potassium 3.9 (3.5-5.1) mmol/L Chloride 106 (98-107) mmol/L Carbon Dioxide 27.3 (21.0-32.0) mmol/L BUN 9 (7.0-18.0) mg/dL Creatinine 0.8 (0.6-1.0) mg/dL Est Cr Clr Drug Dosing 79.91 mL/min Estimated GFR (MDRD) > 60.0 ml/min Glucose 82 (74-106) mg/dL Calcium 8.6 (8.5-10.1) mg/dL Total Bilirubin 0.3 (0.2-1.0) mg/dL AST 23 (15-37) IU/L ALT 24 (14-63) IU/L Alkaline Phosphatase 78 (46-116) U/L Troponin I (0.000-0.056) ng/mL B-Natriuretic Peptide (<100) PG/ML Total Protein 5.9 L (6.4-8.2) g/dL Albumin 2.4 L (3.4-5.0) g/dL Globulin 3.5 (2.6-4.0) g/dL Albumin/Globulin Ratio 0.7 L (0.9-1.6) Urine Color YELLOW Urine Appearance CLOUDY Urine pH 7.5 (5.0-8.0) Ur Specific Cres[place] 1.015 (1.001-1.035) Urine Protein NEGATIVE (NEGATIVE) mg/dL Urine Glucose (UA) NEGATIVE (NEGATIVE) mg/dL Urine Ketones NEGATIVE (NEGATIVE) mg/dL Urine Occult Blood LARGE H (NEGATIVE) Urine Nitrite NEGATIVE (NEGATIVE) Urine Bilirubin NEGATIVE (NEGATIVE) Urine Urobilinogen 0.2 (<2.0) EU/dL Ur Leukocyte Esterase TRACE H (NEGATIVE) Urine RBC 100-110 (0-2/HPF) Urine WBC 0-2 (0-5/HPF) Ur Epithelial Cells RARE (NONE-FEW) Urine Bacteria RARE (NEGATIVE) 02/11/19 02/11/19 02/11/19 Range/Units 19:00 19:00 19:00 WBC (4.0-11.0) K/uL RBC (4.30-5.90) M/uL Hgb (12.0-16.0) g/dL Hct (36.0-46.0) % MCV (80.0-98.0) fL MCH (27.0-32.0) pg MCHC (31.0-37.0) g/dL RDW Std Deviation (28.0-62.0) fl RDW Coeff of Greg (11.0-15.0) % Plt Count (150-400) K/uL MPV (7.40-12.00) fL Neut % (Auto) (48.0-80.0) % Lymph % (Auto) (16.0-40.0) % [place] % (Auto) (0.0-15.0) % Eos % (Auto) (0.0-7.0) % Baso % (Auto) (0.0-1.5) % Neut # (Auto) (1.4-5.7) K/uL Lymph # (Auto) (0.6-2.4) K/uL [place] # (Auto) (0.0-0.8) K/uL Eos # (Auto) (0.0-0.7) K/uL Baso # (Auto) (0.0-0.1) K/uL Nucleated RBC % /100WBC Nucleated RBCs # K/uL INR 0.93 Sodium (136-145) mmol/L Potassium (3.5-5.1) mmol/L Chloride (98-107) mmol/L Carbon Dioxide (21.0-32.0) mmol/L BUN (7.0-18.0) mg/dL Creatinine (0.6-1.0) mg/dL Est Cr Clr Drug Dosing mL/min Estimated GFR (MDRD) ml/min Glucose (74-106) mg/dL Calcium (8.5-10.1) mg/dL Total Bilirubin (0.2-1.0) mg/dL AST (15-37) IU/L ALT (14-63) IU/L Alkaline Phosphatase (46-116) U/L Troponin I < 0.050 (0.000-0.056) ng/mL B-Natriuretic Peptide 159 H (<100) PG/ML Total Protein (6.4-8.2) g/dL Albumin (3.4-5.0) g/dL Globulin (2.6-4.0) g/dL Albumin/Globulin Ratio (0.9-1.6) Urine Color Urine Appearance Urine pH (5.0-8.0) Ur Specific [place] (1.001-1.035) Urine Protein (NEGATIVE) mg/dL Urine Glucose (UA) (NEGATIVE) mg/dL Urine Ketones (NEGATIVE) mg/dL Urine Occult Blood (NEGATIVE) Urine Nitrite (NEGATIVE) Urine Bilirubin (NEGATIVE) Urine Urobilinogen (<2.0) EU/dL Ur Leukocyte Esterase (NEGATIVE) Urine RBC (0-2/HPF) Urine WBC (0-5/HPF) Ur Epithelial Cells (NONE-FEW) Urine Bacteria (NEGATIVE) Meds: Medications Generic Name Dose Route Start Last Admin Trade Name Freq PRN Reason Stop Dose Admin Sodium Chloride 10 ml 02/11/19 18:54 Saline Flush FLUSH ASDIRECTED PRN Keep Vein Open Sodium Chloride 2.5 ml 02/11/19 18:54 Saline Flush FLUSH ASDIRECTED PRN Keep Vein Open Discontinued Medications Generic Name Dose Route Start Last Admin Trade Name Freq PRN Reason Stop Dose Admin Furosemide 20 mg 02/11/19 18:53 02/11/19 19:19 Lasix IVPUSH 02/11/19 18:54 20 mg NOW ONE Administration Iopamidol 100 ml 02/11/19 21:15 02/11/19 21:15 Isovue Multipack-370 (76%) IVPUSH 02/11/19 21:16 100 ml ONETIME STA Administration Nifedipine 30 mg 02/11/19 20:27 02/11/19 20:35 Procardia Xl PO 02/11/19 20:28 30 mg ONETIME ONE Administration Departure - Departure Time of Disposition: 22:03 Disposition: Home, Self-Care 01 Clinical Impression: hypertension, Elevated brain natriuretic peptide (BNP) level - Discharge Information Referrals: PCP,Unknown [Primary Care Provider] - Forms: ED Department Discharge Additional Instructions: The following information is given to patients seen in the emergency department who are being discharged to home. This information is to outline your options for follow-up care. We provide all patients seen in our emergency department with a follow-up referral. The need for follow-up, as well as the timing and circumstances, are variable depending upon the specifics of your emergency department visit. If you don't have a primary care physician on staff, we will provide you with a referral. We always advise you to contact your personal physician following an emergency department visit to inform them of the circumstance of the visit and for follow-up with them and/or the need for any referrals to a consulting specialist. The emergency department will also refer you to a specialist when appropriate. This referral assures that you have the opportunity for follow-up care with a specialist. All of these measure are taken in an effort to provide you with optimal care, which includes your follow-up. Under all circumstances we always encourage you to contact your private physician who remains a resource for coordinating your care. When calling for follow-up care, please make the office aware that this follow-up is from your recent emergency room visit. If for any reason you are refused follow-up, please contact the [facility] Emergency Department at and asked to speak to the emergency department charge nurse. [facility] [address], [place] [address] [facility] [address] [place] [address] [facility] [address] [place] [address] 1. Take medication as prescribed. You can use Tylenol as directed for pain and discomfort. 2. Follow-up with [facility] tomorrow. Call in the morning to verify appointment time with them 3. Return to the ED as needed and as discussed. - My Orders Last 24 Hours: My Active Orders 02/11/19 18:34 CULTURE URINE [RM] Stat 02/11/19 18:39 EKG Documentation Completion [RC] STAT 02/11/19 18:54 Sodium Chloride 0.9% [Saline Flush] 10 ml FLUSH ASDIRECTED PRN Sodium Chloride 0.9% [Saline Flush] 2.5 ml FLUSH ASDIRECTED PRN Saline Lock Insert [OM.PC] Stat - Assessment/Plan Last 24 Hours: My Active Orders 02/11/19 18:34 CULTURE URINE [RM] Stat 02/11/19 18:39 EKG Documentation Completion [RC] STAT 02/11/19 18:54 Sodium Chloride 0.9% [Saline Flush] 10 ml FLUSH ASDIRECTED PRN Sodium Chloride 0.9% [Saline Flush] 2.5 ml FLUSH ASDIRECTED PRN Saline Lock Insert [OM.PC] Stat
[2019-02-11 19:29] LABS: BLOOD UREA NITROGEN,BUN 9 mg/dL (7.0-18.0); CARBON DIOXIDE,CO2 27.3 mmol/L (21.0-32.0); CHLORIDE,CL 106 mmol/L (98-107); GLUCOSE RANDOM 82 mg/dL (74-106); POTASSIUM,K 3.9 mmol/L (3.5-5.1); SODIUM,NA 140 mmol/L (136-145)
--- NOTE | 2019-02-11 20:16 | CR ---
CHEST 2 VIEWS INDICATION: Shortness of breath. IMPRESSION: Normal heart size and vascular pattern. Lungs are clear. No pneumothorax or pleural effusion. Dictated by Jacob Camacho MD @ Feb 11 2019 8:15PM Signed by Dr. Jacob Camacho @ Feb 11 2019 8:15PM
[2019-02-11] MEDS ORDERED: NIFEdipine 30 MG Tab.ER PO ONE (20:27)
[2019-02-11] MEDS ORDERED: Iopamidol 755 MG/ML 500 ML Multipack Bottle IVPUSH STA (21:15)
--- NOTE | 2019-02-11 21:46 | CT ---
INDICATION: Shortness of breath. Hypertension. TECHNIQUE: CT chest PE was acquired with 100 cc Isovue 370 IV contrast. COMPARISON: None. FINDINGS: Heart and vasculature: Contrast opacification of the pulmonary arterial tree is adequate. No sign of pulmonary embolism. Heart size is normal. Thoracic aorta and pulmonary artery are normal in caliber. Lungs and pleural: No suspicious nodules or infiltrates. No pleural effusions, pleural thickening, or pneumothorax. Lymph nodes/mediastinum: No mediastinal, hilar, or axillary adenopathy. Thyroid gland is normal. Chest wall: No masses. Upper abdomen: Normal. Bones: Unremarkable for age. IMPRESSION: Unremarkable CT of the chest. No pulmonary embolism and the lungs are clear. Please note that all CT scans at this facility use dose modulation, iterative reconstruction, and/or weight-based dosing when appropriate to reduce radiation dose to as low as reasonably achievable. Dictated by Saeid Candelario MD @ Feb 11 2019 9:40PM Signed by Dr. Saeid Candelario @ Feb 11 2019 9:45PM
[2019-02-11 22:15] VITALS: BP 146/86; PULSE 59
== END 2019-02-11 21:15 | disposition home or self-care (01) ==
LOC: MW.ED 18:20
DX: O16.5 Unspecified maternal hypertension, complicating the puerperium (principal); O90.89 Other complications of the puerperium, not elsewhere classified; R79.89 Other specified abnormal findings of blood chemistry; O99.285 Endocrine, nutritional and metabolic diseases complicating the puerperium; E03.9 Hypothyroidism, unspecified; O99.215 Obesity complicating the puerperium; Z96.22 Myringotomy tube(s) status
CPT/HCPCS: 36415; 71046; 71275; 80053; 81001; 83880; 84484; 85025; 85610; 87086; 93005; 96374; 99284; A9270; J1940; Q9967; 87088; 87186